=== PATIENT | male | born 1980 | race Two or more races ===

== ENCOUNTER 2021-05-11 22:45 | Emergency (ER) | payer OTHER ==
[~2021-05-11] VITALS: Ht 167.6 cm; Wt 88.8 kg
[2021-05-12 00:10] LABS: BASOPHILS % (AUTO) 1 % (0-1); EOSINOPHILS % (AUTO) 1 % (1-7); LYMPHOCYTES % (AUTO) 9 % (22-44); MEAN CORPUSCULAR HEMOGLOBIN 30.5 pg (27.5-34.5); MEAN CORPUSCULAR HGB CONC 34.8 g/dL (33.2-36.2); MEAN PLATELET VOLUME 8.8 fL (7.4-10.4); MONOCYTES % (AUTO) 7 % (2-9); NEUTROPHILS % (AUTO) 84 % (42-75); PLATELET COUNT 235 x10^3/uL (130-400); RED CELL DISTRIBUTION WIDTH 14.1 % (9.4-14.8)
[2021-05-12 00:21] LABS: ALANINE AMINOTRANSFERASE 69 U/L (12-78); ALBUMIN 3.9 g/dL (3.4-5.0); CALCIUM 9.1 mg/dL (8.5-10.1); CREATININE 1.08 mg/dL (0.7-1.3)
[2021-05-12 00:22] LABS: ALKALINE PHOSPHATASE 58 U/L (45-117); BILIRUBIN,TOTAL 0.6 mg/dL (0.2-1.0); TOTAL PROTEIN 8.2 g/dL (6.4-8.2)
[2021-05-12 00:34] LABS: ANION GAP 9 mmol/L (5-15); CHLORIDE 103 mmol/L (98-107)
[2021-05-12 02:51] VITALS: BP 127/87
--- NOTE | 2021-05-12 02:51 | NUR ---
Patient given discharge instructions and they have confirmed that they understand the instructions. Patient ambulatory with steady gait. NAD, all questions answered appropriately, denies additional needs at this time. No personal belongings left in room after discharge.
== END 2021-05-12 02:52 | disposition home or self-care (01) ==
LOC: ED 05-12 02:00
DX: R11.2 Nausea with vomiting, unspecified (principal); R42 Dizziness and giddiness
CPT/HCPCS: 36415; 80053; 85025; 93005; 99284